=== PATIENT | female | born 1925 | race Caucasian/White ===

== ENCOUNTER 2016-09-13 09:42 | Emergency (ER) | payer MEDICARE ==
[2016-09-13 10:36] LABS: RED BLOOD COUNT 4.35 M/UL (4.00-5.10); WHITE BLOOD COUNT 7.9 K/UL (4.5-11.0)
[2016-09-13 11:07] LABS: BUN/CREATININE RATIO 23 (0-10)
== END 2016-09-13 18:52 | disposition short-term general hospital (02) ==
LOC: ER1 09:42
PROVIDERS: Emergency Medicine
DX: S22.089A Unspecified fracture of T11-T12 vertebra, initial encounter for closed fracture (principal); S70.02XA Contusion of left hip, initial encounter; I10 Essential (primary) hypertension; E78.5 Hyperlipidemia, unspecified; R31.9 Hematuria, unspecified; W01.0XXA Fall on same level from slipping, tripping and stumbling without subsequent striking against object, initial encounter; Y93.89 Activity, other specified
CPT/HCPCS: 36415; 70450; 71010; 72125; 72128; 72131; 73502; 80053; 81001; 82550; 82553; 83874; 84484; 85025; 93005; 96374; 96375; 99285; J2270; J2405